=== PATIENT | female | born 1960 | race Caucasian/White ===

== ENCOUNTER 2020-02-21 11:12 | Emergency (ER) | payer OTHER, MEDICAID ==
[~2020-02-21] VITALS: Ht 160 cm; Wt 79.5 kg
[2020-02-21 12:18] VITALS: BP 125/71
== END 2020-02-21 12:19 | disposition home or self-care (01) ==
LOC: ER 11:12
DX: M79.10 Myalgia, unspecified site (principal); R50.9 Fever, unspecified; R51 Headache; R05 Cough; Z20.828 Contact with and (suspected) exposure to other viral communicable diseases; F17.200 Nicotine dependence, unspecified, uncomplicated; Z79.4 Long term (current) use of insulin
CPT/HCPCS: 36415; 87635; 99282; 99283